=== PATIENT | female | born 1960 | race Hispanic/Latino ===

== ENCOUNTER 2019-07-14 19:00 | Emergency (ER) | payer MEDICAID, MEDICARE ==
--- NOTE | 2019-07-14 20:13 | Emergency Department Report ---
ED Psych HPI - General Chief Complaint: Psych Stated Complaint: PSYCH EVAL Time Seen by Provider: 07/14/19 20:09 Source: patient, EMS Mode of arrival: Ambulatory Limitations: No Limitations - History of Present Illness Initial Comments: cc: "I can not find where I live." HPI: This is a 58-year-old female with history of bipolar affective disorder, polysubstance abuse who presents via EMS. She was discovered on side of the road with erratic behavior. Upon EMS arrival she appeared to have rambling speech. She was able to tell paramedics that she has not been taking her psychiatric medication. She denies hallucinations. She denies suicidal homi cidal ideation. She does admit to cocaine and methamphetamine use. She denies any physical complaints at this time. MD Complaint: other (Not taking medications, erratic behavior) -: Gradual, unknown Associated Psychiatric Symptoms: racing thoughts History of same: Yes Context: recent drug abuse, not taking psychiatric Associated Symptoms: denies other symptoms Treatments Prior to Arrival: none - Related Data Previous Rx's Medication Instructions Recorded Last Taken Type ARIPiprazole [Abilify TAB] 15 mg PO DAILY #30 tablet 07/16/19 Unknown Rx buPROPion [Wellbutrin] 100 mg PO TID #90 tablet 07/16/19 Unknown Rx donepeziL [Aricept] 5 mg PO QHS #30 tablet 07/16/19 Unknown Rx Allergies Allergy/AdvReac Type Severity Reaction Status Date / Time divalproex sodium AdvReac Unknown Verified 07/14/19 20:03 [From [facility]] ED Review of Systems ROS: Stated complaint: PSYCH EVAL Other details as noted in HPI Comment: All other systems reviewed and negative Constitutional: denies: fever, malaise Cardiovascular: denies: chest pain Gastrointestinal: denies: abdominal pain ED Past Medical Hx - Past Medical History Previous Medical History?: Yes Hx Psychiatric Treatment: Yes (bipolar) - Surgical History Past Surgical History?: Yes Hx Cholecystectomy: Yes Additional Surgical History: cyst in neck removal. tubaligation - Social History Smoking Status: Unknown if ever smoked - Medications Home Medications: Home Medications Medication Instructions Recorded Confirmed Last Taken Type ARIPiprazole [Abilify TAB] 15 mg PO DAILY #30 tablet 07/16/19 Unknown Rx buPROPion [Wellbutrin] 100 mg PO TID #90 tablet 07/16/19 Unknown Rx donepeziL [Aricept] 5 mg PO QHS #30 tablet 07/16/19 Unknown Rx ED Physical Exam - General Limitations: No Limitations General appearance: alert, in no apparent distress, other (Calm cooperative) - Head Head exam: Present: atraumatic, normocephalic - Eye Eye exam: Present: normal appearance - ENT ENT exam: Present: mucous membranes moist - Neck Neck exam: Present: normal inspection, full ROM - Respiratory Respiratory exam: Present: normal lung sounds bilaterally. Absent: respiratory distress, wheezes, rales, rhonchi - Cardiovascular Cardiovascular Exam: Present: regular rate, normal rhythm, normal heart sounds. Absent: systolic murmur, diastolic murmur, rubs, gallop - GI/Abdominal GI/Abdominal exam: Present: soft. Absent: distended, tenderness, guarding, rebound - Extremities Exam Extremities exam: Present: normal inspection - Neurological Exam Neurological exam: Present: alert, oriented X3 - Psychiatric Psychiatric exam: Present: normal mood, flat affect - Skin Skin exam: Present: warm, dry, intact, normal color. Absent: rash ED Course Vital Signs 07/14/19 07/15/19 07/15/19 20:51 09:10 19:25 Temperature 98.1 F 97.8 F 98.3 F Pulse Rate 74 85 72 Respiratory 18 17 16 Rate Blood Pressure 102/69 118/83 102/71 [Left] O2 Sat by Pulse 99 99 98 Oximetry 07/16/19 01:57 Temperature 98.1 F Pulse Rate 66 Respiratory 16 Rate Blood Pressure 102/74 [Left] O2 Sat by Pulse 98 Oximetry - Reevaluation(s) Reevaluation #1: 07/15/19 02:24 After 6 hours of observation, patient suddenly became aggressive erratic. She developed pressured speech. She excitedly spoke to persons who were not present in the room. She required chemical restraint and seclusion in padded room. ED Medical Decision Making - Lab Data Result diagrams: 07/14/19 20:23 07/14/19 20:23 Laboratory Results - last 72 hr 07/14/19 07/14/19 07/14/19 20:23 20:23 20:23 WBC RBC Hgb Hct MCV MCH MCHC RDW Plt Count Lymph % (Auto) [place] % (Auto) Eos % (Auto) Baso % (Auto) Lymph # [place] # Eos # Baso # Seg Neutrophils % Seg Neutrophils # Sodium 140 Potassium 4.2 Chloride 99.9 Carbon Dioxide 24 Anion Gap 20 BUN 15 Creatinine 0.6 L Estimated GFR > 60 BUN/Creatinine Ratio 25 Glucose 98 Calcium 9.6 Urine Color Urine Turbidity Urine pH Ur Specific [place] Urine Protein Urine Glucose (UA) Urine Ketones Urine Blood Urine Nitrite Urine Bilirubin Urine Urobilinogen Ur Leukocyte Esterase Urine WBC (Auto) Urine RBC (Auto) U Epithel Cells (Auto) Urine Bacteria (Auto) Urine Mucus Salicylates < 0.3 L Urine Opiates Screen Urine Methadone Screen Acetaminophen < 5.0 L Ur Barbiturates Screen Ur Phencyclidine Scrn Ur Amphetamines Screen U Benzodiazepines Scrn Urine Cocaine Screen U Marijuana (THC) Screen Drugs of Abuse Note Plasma/Serum Alcohol 07/14/19 07/14/19 07/14/19 20:23 20:23 Unknown WBC 15.3 H RBC 5.06 H Hgb 14.5 H Hct 43.9 H MCV 87 MCH 29 MCHC 33 RDW 14.8 Plt Count 303 Lymph % (Auto) 27.2 [place] % (Auto) 5.1 Eos % (Auto) 1.0 Baso % (Auto) 1.4 Lymph # 4.2 [place] # 0.8 Eos # 0.2 Baso # 0.2 H Seg Neutrophils % 65.3 Seg Neutrophils # 10.0 H Sodium Potassium Chloride Carbon Dioxide Anion Gap BUN Creatinine Estimated GFR BUN/Creatinine Ratio Glucose Calcium Urine Color Yellow Urine Turbidity Clear Urine pH 7.0 Ur Specific [place] 1.018 Urine Protein <15 mg/dl Urine Glucose (UA) Neg Urine Ketones Neg Urine Blood Neg Urine Nitrite Neg Urine Bilirubin Neg Urine Urobilinogen 2.0 Ur Leukocyte Esterase Neg Urine WBC (Auto) 4.0 Urine RBC (Auto) 5.0 U Epithel Cells (Auto) 4.0 Urine Bacteria (Auto) 3+ Urine Mucus Few Salicylates Urine Opiates Screen Urine Methadone Screen Acetaminophen Ur Barbiturates Screen Ur Phencyclidine Scrn Ur Amphetamines Screen U Benzodiazepines Scrn Urine Cocaine Screen U Marijuana (THC) Screen Drugs of Abuse Note Plasma/Serum Alcohol < 0.01 07/14/19 Unknown WBC RBC Hgb Hct MCV MCH MCHC RDW Plt Count Lymph % (Auto) [place] % (Auto) Eos % (Auto) Baso % (Auto) Lymph # [place] # Eos # Baso # Seg Neutrophils % Seg Neutrophils # Sodium Potassium Chloride Carbon Dioxide Anion Gap BUN Creatinine Estimated GFR BUN/Creatinine Ratio Glucose Calcium Urine Color Urine Turbidity Urine pH Ur Specific [place] Urine Protein Urine Glucose (UA) Urine Ketones Urine Blood Urine Nitrite Urine Bilirubin Urine Urobilinogen Ur Leukocyte Esterase Urine WBC (Auto) Urine RBC (Auto) U Epithel Cells (Auto) Urine Bacteria (Auto) Urine Mucus Salicylates Urine Opiates Screen Presumptive negative Urine Methadone Screen Presumptive negative Acetaminophen Ur Barbiturates Screen Presumptive negative Ur Phencyclidine Scrn Presumptive negative Ur Amphetamines Screen Presumptive negative U Benzodiazepines Scrn Presumptive negative Urine Cocaine Screen Presumptive positive U Marijuana (THC) Screen Presumptive negative Drugs of Abuse Note Disclamer Plasma/Serum Alcohol - Medical Decision Making Ms. Wilson has a history of bipolar affective disorder and polysubstance abuse. She currently at this time is calm and cooperative. She appears to have insight. She is medically clear for psychiatric care. I suspect her erratic be havior is due to drug use. However she will benefit from evaluation by our psychiatric team. I have reviewed labs obtained. Patient has there is nonspecfic leukocytosis present without fever or SIRS. I do not suspect infection at this time. UDS + for cocaine. She is medically clear for psychiatric care. Mrs. Wilson was discharged home Critical care attestation.: If time is entered above; I have spent that time in minutes in the direct care of this critically ill patient, excluding procedure time. ED Disposition Clinical Impression: Bipolar disorder, Polysubstance abuse, Acute psychosis, Manic episode Disposition: DC-01 TO HOME OR SELFCARE Is pt being admited?: No Does the pt Need Aspirin: No Condition: Stable Instructions: Cocaine Abuse (ED), Bipolar Disorder (ED), Suicide Prevention for Adults (ED) Additional Instructions: Follow-up as per mental health providers Prescriptions: donepeziL [Aricept] 5 mg PO QHS #30 tablet ARIPiprazole [Abilify TAB] 15 mg PO DAILY #30 tablet buPROPion [Wellbutrin] 100 mg PO TID #90 tablet Referrals: PRIMARY CARE, [Primary Care Provider] - 3-5 Days
[2019-07-14 20:15] LABS: Bacteria,Urine 3+ /HPF (Negative); Bilirubin,Urine NEG (Negative); Blood,Urine NEG (Negative); Color,Urine Yellow (Yellow); Mucus,Urine FEW /HPF; Protein,Urine <15 mg/dL mg/dL (Negative)
[2019-07-14 20:21] LABS: Amphetamine Screen,Urine PRESUMPTIVE NEGATIVE; Benzodiazepines Screen,Urine PRESUMPTIVE NEGATIVE; Cannabinoid Screen,Urine PRESUMPTIVE NEGATIVE; Methadone Screen,Urine PRESUMPTIVE NEGATIVE; Opiate Screen,Urine PRESUMPTIVE NEGATIVE
[2019-07-14 20:36] LABS: Cocaine Screen,Urine PRESUMPTIVE POSITIVE
[2019-07-14 20:48] LABS: Basophils # (Auto) 0.2 K/mm3 (0.0-0.1); Basophils % (Auto) 1.4 % (0.0-1.8); Eosinophils # (Auto) 0.2 K/mm3 (0.0-0.4); Hematocrit 43.9 % (30.3-42.9); Hemoglobin 14.5 gm/dl (10.1-14.3); Lymphocytes # (Auto) 4.2 K/mm3 (1.2-5.4); Lymphocytes % (Auto) 27.2 % (13.4-35.0); Mean Corpuscular HGB Conc 33 % (30-34); Mean Corpuscular Volume 87 fl (79-97); Monocytes # (Auto) 0.8 K/mm3 (0.0-0.8); Monocytes % (Auto) 5.1 % (0.0-7.3); Red Blood Count 5.06 M/mm3 (3.65-5.03); Red Cell Distribution Width 14.8 % (13.2-15.2)
[2019-07-14 20:52] LABS: Platelet Count 303 K/mm3 (140-440)
[2019-07-14 21:05] LABS: BUN/Creatinine Ratio 25; Blood Urea Nitrogen 15 mg/dL (7-17); Calcium 9.6 mg/dL (8.4-10.2); Hemolysis Index 22
[2019-07-15] MEDS ORDERED: ZIPRASIDONE MESYLATE 20 MG VIAL IM ONE (01:49)
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
[2019-07-15] MEDS ORDERED: LORazepam 2 MG TAB PO PRN (12:00)
[2019-07-15] MEDS ORDERED: clonazePAM 0.5 MG TAB PO PRN (12:02)
[2019-07-15] MEDS: buPROPion 100 MG TAB PO SCH ×2 (14:25→20:30)
[2019-07-15] MEDS: ARIPiprazole 15 MG TAB PO SCH (14:26)
[2019-07-15] MEDS ORDERED: DONEPEZIL 5 MG TAB PO SCH (22:00)
[2019-07-15] MEDS ORDERED: traZODone 50 MG TAB PO SCH (22:00)
[2019-07-16 01:58] VITALS: BP 102/74
[2019-07-16] MEDS: buPROPion 100 MG TAB PO SCH ×2 (09:00→15:00)
[2019-07-16] MEDS: ARIPiprazole 15 MG TAB PO SCH (11:00)
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
== END 2019-07-16 16:45 | disposition home or self-care (01) ==
LOC: ED 19:00 → EEVIPCON 19:00 → ED 07-16 16:45
DX: F31.9 Bipolar disorder, unspecified (principal); F19.10 Other psychoactive substance abuse, uncomplicated; Z90.49 Acquired absence of other specified parts of digestive tract; Z98.890 Other specified postprocedural states; Z98.51 Tubal ligation status; Z88.8 Allergy status to other drugs, medicaments and biological substances
CPT/HCPCS: 36415; 80048; 80307; 81001; 85025; 96372; 99285; J3486; 80320; G0480